=== PATIENT | female | born 1995 | race Hispanic/Latino ===

== ENCOUNTER 2018-02-02 11:55 | Observation (INO) | payer MEDICAID, OTHER ==
[~2018-02-02] VITALS: Ht 157.5 cm; Wt 73.5 kg
[2018-02-02 14:47] VITALS: BP 108/58
== END 2018-02-02 15:04 | disposition home or self-care (01) ==
LOC: LDH 11:55
PROVIDERS: ADMIT Obstetrics & Gynecology; ATTEND Obstetrics & Gynecology
DX: O36.8130 Decreased fetal movements, third trimester, not applicable or unspecified (principal); O62.9 Abnormality of forces of labor, unspecified; Z3A.37 37 weeks gestation of pregnancy
CPT/HCPCS: 59025; 76819; G0378

== ENCOUNTER 2019-06-08 19:35 | Inpatient (IN) | payer MEDICAID, OTHER ==
[~2019-06-08] VITALS: Ht 154.9 cm; Wt 65.8 kg
[2019-06-08 20:00] LABS: APPEARANCE,URINE Cloudy (CLEAR); BILIRUBIN,URINE Small (NEGATIVE); COLOR,URINE Dark Yellow (YELLOW); GLUCOSE, URINE (UA) Negative (NEGATIVE); KETONES,URINE Negative (NEGATIVE); LEUKOCYTE ESTERASE ,URINE Large (NEGATIVE); NITRATE,URINE Negative (NEGATIVE); OCCULT BLOOD,URINE Small (NEGATIVE); PROTEIN,URINE Trace mg/dL (NEGATIVE); UROBILINOGEN,URINE >=8.0 mg/dL (0.2-1.0)
[2019-06-08 20:08] LABS: HEMATOCRIT 38.1 % (36-48); MEAN CORPUSCULAR HEMOGLOBIN 26.9 pg (27.0-33.0); MEAN CORPUSCULAR HGB CONC 33.5 g/dL (32.0-36.0); MEAN CORPUSCULAR VOLUME 80.1 fL (79-99); PLATELET COUNT (AUTO) 166 K/uL (130-400); RED BLOOD CELL COUNT(AUTO) 4.76 MIL/uL (4.00-5.50); RED CELL DISTRIBUTION WIDTH 15.3 % (11.0-15.5); WHITE BLOOD COUNT (AUTO) 9.3 K/uL (4.8-10.8)
[2019-06-08 20:09] LABS: BASOPHILS % (AUTO) 0.1 % (0.0-5.0); EOSINOPHILS % (AUTO) 0.1 % (0.0-8.0); LYMPHOCYTES % (AUTO) 6.3 % (21.0-51.0); MONOCYTES % (AUTO) 10.5 % (3.0-13.0)
[2019-06-08 20:10] LABS: HCG,QUAL RESULT NEGATIVE (NEGATIVE)
[2019-06-08 20:13] LABS: BACTERIA,URINE Few /HPF (None Seen); SQUAMOUS EPITHELIAL CELL,UR Moderate /HPF (0-2); WBC,URINE 26-50 /HPF (0-1)
[2019-06-08 20:15] LABS: TRICHOMONAS,URINE Few /LPF (None Seen)
[2019-06-08 20:16] LABS: RAPID GROUP A STREP NEGATIVE (NEGATIVE)
[2019-06-08 20:17] LABS: CREATININE 0.8 mg/dL (0.5-1.5); POTASSIUM 3.5 mmol/L (3.5-5.1)
[2019-06-08 20:22] LABS: ALBUMIN 3.7 g/dL (3.5-5.0); BILIRUBIN,TOTAL 0.8 mg/dL (0.2-1.0); TOTAL PROTEIN, SERUM 7.9 g/dL (6.0-8.3)
[2019-06-08] MEDS ORDERED: ACETAMINOPHEN 325 MG TAB ONE (20:25)
[2019-06-08] MEDS ORDERED: ONDANSETRON HCL 4 MG/2 ML VIAL ONE (20:25)
[2019-06-08] MEDS ORDERED: CEFTRIAXONE SODIUM 1 GM ONE (20:25)
[2019-06-08] MEDS ORDERED: SODIUM CHLORIDE 0.9% 1000ML 2,000 ML IV ONE (20:26)
[2019-06-08 21:42] LABS: INR 1.02 (0.85-1.15); PARTIAL THROMBOPLASTIN TIME 27.9 SEC (26.3-35.5); PROTHROMBIN TIME 10.7 SEC (9.6-11.6)
[2019-06-08] MEDS ORDERED: IBUPROFEN 200 MG TAB ONE (23:23)
[2019-06-09] MEDS ORDERED: CEFTRIAXONE SODIUM 1 GM IVP SCH (01:45)
[2019-06-09] MEDS ORDERED: ACETAMINOPHEN ELIXIR 160 MG/5ML UDCUP PO PRN (02:00)
[2019-06-09] MEDS ORDERED: SODIUM CHLORIDE 0.9% 1000ML 1,000 ML IV ONE (02:12)
[2019-06-09 03:10] VITALS: BP 112/50
[2019-06-09] MEDS: SODIUM CHLORIDE 0.9% 1000ML 1,000 ML IV SCH ×3 (03:30→18:25)
[2019-06-09 08:00] VITALS: BP 92/55
[2019-06-09] MEDS ORDERED: METHYLPREDNISOLONE SOD SUCC 125MG/2ML VIAL IVP SCH (08:15)
[2019-06-09] MEDS: ZOSYN 3.375GM+NS 50ML 50 ML IV SCH ×3 (08:53→23:56)
[2019-06-09] MEDS: FAMOTIDINE/PF 20 MG/2 ML VIAL IV SCH ×2 (08:53→19:41)
[2019-06-09] MEDS ORDERED: IOHEXOL-350 50ML VIAL IV ONE (08:59)
[2019-06-09 12:00] VITALS: BP 86/42
[2019-06-09] MEDS ORDERED: GLIM4TAB3 PO (12:33)
[2019-06-09] MEDS ORDERED: PANT40TA25 PO (12:33)
[2019-06-09] MEDS ORDERED: METF-806 PO (12:33)
[2019-06-09] MEDS ORDERED: METO25TA6 PO (12:33)
[2019-06-09] MEDS ORDERED: LISI2.5T2 PO (12:33)
[2019-06-09] MEDS ORDERED: ATOR40TA69 PO (12:33)
[2019-06-09] MEDS: METHYLPREDNISOLONE SOD SUCC 125MG/2ML VIAL IVP SCH (13:10)
--- NOTE | 2019-06-09 13:33 | NUR ---
RD NOTIFICATION Primary Diagnosis: Acute Left Peritonsillar Abscess. Hx: Sore throat, Fever. BMI is 27.7; classified as overweight. Current diet: NPO. LBM: 06/08. Skin: no edema, skin intact. Meds: Pepcid, Soul-medrol, Piperacillin. Labs: neg. for Strep Rapid, RG 137, AST 122, ALT 109. Pt has not eaten well for the past week as per pt. She is having difficulty swallowing for the past week. Pt states she has been vomiting with everything she eats. For the past week she has only been eating ice cream and jello, and still vomiting. Pt is pending procedure results and pending consult as per nurse. Nurse advised to remain NPO until results come back. RD recommends to continue NPO, advance diet as tolerated when medically feasible. RD recommends to consider alternate means of nutrition if pt continues without eating X5 days. RD will continue to monitor weight changes and follow up as needed. Please notify RD if any other nutritional concerns arise. Thank you. Beatriz Valle, Dietitian Trainee Addendum: 06/09/19 at [address] RD Amended: Links added.
--- NOTE | 2019-06-09 15:40 | NUR ---
DCP CM met with pt discussed dc plans. Pt is independent prior to admission, lives at home alone, mother lives close by. Denies any equipments/services. Pt feels safe to go back home, still drives, mother able to assist with transportation and needs as necessary. DC plan to home once stable. CM to cont to follow up. Addendum: 06/09/19 at 1541 by MALIHA GROVE LVN CM Amended: Links added.
[2019-06-09 16:00] VITALS: BP 91/54
[2019-06-09 20:00] VITALS: BP 109/67
[2019-06-10] VITALS (7 sets, daily range): BP systolic 90–108; BP diastolic 58–65
[2019-06-10] MEDS: SODIUM CHLORIDE 0.9% 1000ML 1,000 ML IV SCH ×3 (02:59→23:03)
[2019-06-10 05:27] LABS: MEAN CORPUSCULAR HEMOGLOBIN 27.2 pg (27.0-33.0); MEAN CORPUSCULAR HGB CONC 34.1 g/dL (32.0-36.0); MEAN CORPUSCULAR VOLUME 79.9 fL (79-99); PLATELET COUNT (AUTO) 222 K/uL (130-400); RED BLOOD CELL COUNT(AUTO) 4.13 MIL/uL (4.00-5.50); RED CELL DISTRIBUTION WIDTH 15.1 % (11.0-15.5); WHITE BLOOD COUNT (AUTO) 10.2 K/uL (4.8-10.8)
[2019-06-10 05:34] LABS: CREATININE 0.7 mg/dL (0.5-1.5); POTASSIUM 3.9 mmol/L (3.5-5.1)
[2019-06-10] MEDS: ZOSYN 3.375GM+NS 50ML 50 ML IV SCH ×3 (08:30→23:13)
[2019-06-10] MEDS: FAMOTIDINE/PF 20 MG/2 ML VIAL IV SCH ×2 (08:30→19:21)
[2019-06-10] MEDS: ENOXAPARIN SODIUM 30 MG/0.3 ML SQ SCH (08:33)
[2019-06-10] MEDS: METHYLPREDNISOLONE SOD SUCC 125MG/2ML VIAL IVP SCH (13:00)
[2019-06-11 03:33] VITALS: BP 102/58
[2019-06-11 05:37] LABS: HEMATOCRIT 31.1 % (36-48); MEAN CORPUSCULAR HEMOGLOBIN 27.1 pg (27.0-33.0); MEAN CORPUSCULAR HGB CONC 33.4 g/dL (32.0-36.0); MEAN CORPUSCULAR VOLUME 81.1 fL (79-99); PLATELET COUNT (AUTO) 223 K/uL (130-400); RED BLOOD CELL COUNT(AUTO) 3.83 MIL/uL (4.00-5.50); WHITE BLOOD COUNT (AUTO) 7.1 K/uL (4.8-10.8)
[2019-06-11 05:44] LABS: CREATININE 0.7 mg/dL (0.5-1.5); POTASSIUM 3.6 mmol/L (3.5-5.1)
[2019-06-11 08:00] VITALS: BP 91/53
[2019-06-11] MEDS ORDERED: ACETAMINOPHEN 325 MG TAB PO PRN (08:15)
[2019-06-11] MEDS: FAMOTIDINE/PF 20 MG/2 ML VIAL IV SCH (08:20)
[2019-06-11] MEDS: ZOSYN 3.375GM+NS 50ML 50 ML IV SCH (08:20)
[2019-06-11] MEDS: ENOXAPARIN SODIUM 30 MG/0.3 ML SQ SCH (08:27)
[2019-06-11] MEDS ORDERED: AMOX-426 PO (09:53)
[2019-06-11 12:11] VITALS: BP 91/56
[2019-06-11] MEDS: SODIUM CHLORIDE 0.9% 1000ML 1,000 ML IV SCH (12:23)
[2019-06-11] MEDS: METHYLPREDNISOLONE SOD SUCC 125MG/2ML VIAL IVP SCH (13:00)
== END 2019-06-11 14:05 | disposition home or self-care (01) | DRG 134 ==
LOC: EDH 19:35 → OBSVTOIN 19:36 → EDHIP 19:36 → 3DH 06-09 03:29
PROVIDERS: ADMIT Internal Medicine; ATTEND Internal Medicine
PROC: 0C9PXZZ Drainage of Tonsils, External Approach (ICD-10-PCS; principal; 2019-06-09)
DX: J36 Peritonsillar abscess (principal)
CPT/HCPCS: 36415; 70491; 71045; 80048; 80053; 81001; 81025; 83605; 85025; 85027; 85610; 85730; 86308; 87040; 87070; 87076; 87088; 87804; 87880; 93005; G0378; J0696; J1650; J2405; J2543; J2930; J3490; J7030; Q9967

== ENCOUNTER 2019-07-06 09:50 | Emergency (ER) | payer OTHER ==
[~2019-07-06 09:50] MED LIST: AMOX-426 PO
[2019-07-06] MEDS ORDERED: ONDANSETRON HCL 4 MG/2 ML VIAL ONE (10:34)
[2019-07-06] MEDS ORDERED: SODIUM CHLORIDE 0.9% 1000ML 1,000 ML IV ONE (10:34)
[2019-07-06 10:35] LABS: APPEARANCE,URINE Cloudy (CLEAR); BILIRUBIN,URINE Negative (NEGATIVE); COLOR,URINE Yellow (YELLOW); GLUCOSE, URINE (UA) Negative (NEGATIVE); KETONES,URINE Negative (NEGATIVE); LEUKOCYTE ESTERASE ,URINE Large (NEGATIVE); NITRATE,URINE Negative (NEGATIVE); OCCULT BLOOD,URINE Negative (NEGATIVE); PROTEIN,URINE Negative (NEGATIVE)
[2019-07-06 10:36] LABS: BASOPHILS % (AUTO) 0.2 % (0.0-5.0); EOSINOPHILS % (AUTO) 2.6 % (0.0-8.0); HEMATOCRIT 32.8 % (36-48); LYMPHOCYTES % (AUTO) 17.7 % (21.0-51.0); MEAN CORPUSCULAR HEMOGLOBIN 27.6 pg (27.0-33.0); MEAN CORPUSCULAR HGB CONC 34.3 g/dL (32.0-36.0); MEAN CORPUSCULAR VOLUME 80.5 fL (79-99); MONOCYTES % (AUTO) 6.6 % (3.0-13.0); NEUTROPHILS % (AUTO) 72.9 % (40.0-77.0); PLATELET COUNT (AUTO) 237 K/uL (130-400); RED BLOOD CELL COUNT(AUTO) 4.07 MIL/uL (4.00-5.50); RED CELL DISTRIBUTION WIDTH 15.8 % (11.0-15.5); WHITE BLOOD COUNT (AUTO) 6.9 K/uL (4.8-10.8)
[2019-07-06 10:43] LABS: CREATININE 0.6 mg/dL (0.5-1.5); POTASSIUM 3.6 mmol/L (3.5-5.1)
[2019-07-06 10:54] LABS: ALBUMIN 3.5 g/dL (3.5-5.0); BACTERIA,URINE Few /HPF (None Seen); BILIRUBIN,TOTAL 0.6 mg/dL (0.2-1.0); RBC,URINE 0-1 /HPF (0-1); TOTAL PROTEIN, SERUM 7.2 g/dL (6.0-8.3); WBC,URINE 51-100 /HPF (0-1)
[2019-07-06 10:55] LABS: MUCUS,URINE Moderate LPF (None Seen); SQUAMOUS EPITHELIAL CELL,UR Few /HPF (0-2); TRICHOMONAS,URINE Few /LPF (None Seen)
[2019-07-06] MEDS ORDERED: CEFTRIAXONE SODIUM 1 GM ONE (11:09)
== END 2019-07-06 13:05 | disposition home or self-care (01) ==
LOC: EDH 09:50
DX: O23.41 Unspecified infection of urinary tract in pregnancy, first trimester (principal); O98.811 Other maternal infectious and parasitic diseases complicating pregnancy, first trimester; A59.9 Trichomoniasis, unspecified; O21.8 Other vomiting complicating pregnancy; Z3A.01 Less than 8 weeks gestation of pregnancy
CPT/HCPCS: 36415; 76817; 80053; 81001; 83690; 84702; 85025; 86900; 86901; 96361; 96374; 96375; 99285; J0696; J2405; J7030

== ENCOUNTER 2020-08-06 11:46 | Emergency (ER) | payer OTHER ==
[2020-08-06 12:32] LABS: APPEARANCE,URINE Cloudy (CLEAR); BILIRUBIN,URINE Negative (NEGATIVE); COLOR,URINE Yellow (YELLOW); GLUCOSE, URINE (UA) Negative (NEGATIVE); KETONES,URINE Negative (NEGATIVE); LEUKOCYTE ESTERASE ,URINE Moderate (NEGATIVE); NITRATE,URINE Negative (NEGATIVE); OCCULT BLOOD,URINE Negative (NEGATIVE); PH,URINE 6.5 (5.0-8.0); PROTEIN,URINE Negative (NEGATIVE)
[2020-08-06 12:33] LABS: HCG,QUAL RESULT NEGATIVE (NEGATIVE)
[2020-08-06 12:42] LABS: BACTERIA,URINE Rare /HPF (None Seen); RBC,URINE 0-1 /HPF (0-1); SQUAMOUS EPITHELIAL CELL,UR Few /HPF (0-2)
[2020-08-06] MEDS ORDERED: CEFTRIAXONE SODIUM 1 GM ONE ×2 (14:46→14:56)
[2020-08-06] MEDS ORDERED: LIDOCAINE HCL-MPF 1% 2ML VIAL ONE (14:56)
[2020-08-06] MEDS ORDERED: AZITHROMYCIN 250 MG TABLET PO ONE (15:04)
[2020-08-06] MEDS ORDERED: METRONIDAZOLE 500 MG TABLET ONE (15:07)
== END 2020-08-06 15:41 | disposition home or self-care (01) ==
LOC: EDH 11:46
DX: N39.0 Urinary tract infection, site not specified (principal); A59.01 Trichomonal vulvovaginitis
CPT/HCPCS: 36415; 76856; 81001; 81025; 84702; 87088; 87210; 87486; 87797; 96372; 99284; J0696 ×2; J3490

== ENCOUNTER 2021-02-02 14:40 | Emergency (ER) | payer SELFPAY ==
[2021-02-02] MEDS ORDERED: KETOROLAC 30MG VIAL (30MG/ML) ONE (15:23)
[2021-02-02] MEDS ORDERED: ONDANSETRON 4MG INJ ONE (15:23)
[2021-02-02 15:24] LABS: BASOPHILS % (AUTO) 0.3 % (0.0-5.0); EOSINOPHILS % (AUTO) 2.4 % (0.0-8.0); HEMATOCRIT 39.5 % (36-48); LYMPHOCYTES % (AUTO) 15.6 % (21.0-51.0); MEAN CORPUSCULAR HEMOGLOBIN 28.5 pg (27.0-33.0); MEAN CORPUSCULAR HGB CONC 33.9 g/dL (32.0-36.0); MONOCYTES % (AUTO) 6.4 % (3.0-13.0); PLATELET COUNT (AUTO) 248 K/uL (130-400); RED CELL DISTRIBUTION WIDTH 13.2 % (11.0-15.5)
[2021-02-02 15:37] LABS: CREATININE 0.7 mg/dL (0.5-1.5); POTASSIUM 4.2 mmol/L (3.5-5.1)
[2021-02-02 15:41] LABS: ALBUMIN 3.9 g/dL (3.5-5.0); BILIRUBIN,TOTAL 0.5 mg/dL (0.2-1.0); TOTAL PROTEIN, SERUM 7.5 g/dL (6.0-8.3)
[2021-02-02 16:12] LABS: APPEARANCE,URINE Cloudy (CLEAR); BILIRUBIN,URINE Negative (NEGATIVE); COLOR,URINE Yellow (YELLOW); GLUCOSE, URINE (UA) Negative (NEGATIVE); KETONES,URINE Negative (NEGATIVE); LEUKOCYTE ESTERASE ,URINE Moderate (NEGATIVE); NITRATE,URINE Negative (NEGATIVE); OCCULT BLOOD,URINE Negative (NEGATIVE); PROTEIN,URINE Negative (NEGATIVE)
[2021-02-02 16:13] LABS: HCG,QUAL RESULT NEGATIVE (NEGATIVE)
[2021-02-02 16:28] LABS: BACTERIA,URINE Few /HPF (None Seen); MUCUS,URINE Moderate LPF (None Seen); SQUAMOUS EPITHELIAL CELL,UR Moderate /HPF (0-2)
== END 2021-02-02 17:18 | disposition home or self-care (01) ==
LOC: EDH 14:40
DX: R10.9 Unspecified abdominal pain (principal)
CPT/HCPCS: 36415; 74176; 80053; 81001; 81025; 83690; 85025; 87088; 96361; 96374; 96375; 99284; J1885; J2405

== ENCOUNTER 2021-07-05 23:13 | Emergency (ER) | payer SELFPAY ==
[~2021-07-05] VITALS: Ht 154.9 cm; Wt 77.1 kg
[2021-07-06 00:02] LABS: BASOPHILS % (AUTO) 0.4 % (0.0-5.0); EOSINOPHILS % (AUTO) 3.1 % (0.0-8.0); HEMATOCRIT 40.2 % (36-48); LYMPHOCYTES % (AUTO) 18.1 % (21.0-51.0); MEAN CORPUSCULAR HEMOGLOBIN 28.9 pg (27.0-33.0); MEAN CORPUSCULAR HGB CONC 33.1 g/dL (32.0-36.0); MEAN CORPUSCULAR VOLUME 87.2 fL (79-99); MONOCYTES % (AUTO) 8.2 % (3.0-13.0); NEUTROPHILS % (AUTO) 69.8 % (40.0-77.0); PLATELET COUNT (AUTO) 263 K/uL (130-400); RED BLOOD CELL COUNT(AUTO) 4.61 MIL/uL (4.00-5.50); RED CELL DISTRIBUTION WIDTH 13.3 % (11.0-15.5); WHITE BLOOD COUNT (AUTO) 9.8 K/uL (4.8-10.8)
[2021-07-06 00:05] LABS: CREATININE 0.7 mg/dL (0.5-1.5)
[2021-07-06 00:07] LABS: BILIRUBIN,URINE Negative (NEGATIVE); COLOR,URINE Yellow (YELLOW); GLUCOSE, URINE (UA) Negative (NEGATIVE); KETONES,URINE Negative (NEGATIVE); LEUKOCYTE ESTERASE ,URINE Small (NEGATIVE); NITRATE,URINE Negative (NEGATIVE); OCCULT BLOOD,URINE Negative (NEGATIVE); PROTEIN,URINE Negative (NEGATIVE)
[2021-07-06 00:08] LABS: APPEARANCE,URINE HAZY (CLEAR)
[2021-07-06 00:10] LABS: ALBUMIN 3.8 g/dL (3.5-5.0); BILIRUBIN,TOTAL 0.3 mg/dL (0.2-1.0); TOTAL PROTEIN, SERUM 7.4 g/dL (6.0-8.3)
[2021-07-06 00:16] LABS: BACTERIA,URINE Few /HPF (None Seen); RBC,URINE 0-1 /HPF (0-1)
[2021-07-06 00:17] LABS: AMORPHOUS SEDIMENT,UR Few /LPF (None Seen); MUCUS,URINE Few LPF (None Seen)
[2021-07-06] MEDS ORDERED: CEFTRIAXONE 1G VIAL IVP ONE (00:30)
[2021-07-06] MEDS ORDERED: CEFTRIAXONE 1G VIAL ONE (00:47)
[2021-07-06] MEDS ORDERED: CEPH500B PO (01:51)
[2021-07-06 02:04] VITALS: BP 116/70
== END 2021-07-06 02:06 | disposition home or self-care (01) ==
LOC: EDH 23:13
DX: N39.0 Urinary tract infection, site not specified (principal); Z79.899 Other long term (current) drug therapy
CPT/HCPCS: 36415; 74176; 80053; 81001; 84703; 85025; 96374; 99284; J0696

== ENCOUNTER 2022-01-17 16:34 | Emergency (ER) | payer MEDICAID, OTHER ==
[~2022-01-17] VITALS: Ht 154.9 cm; Wt 75.7 kg
[~2022-01-17 16:34] MED LIST changes: +CEPH500B PO
[2022-01-17 16:57] LABS: BASOPHILS % (AUTO) 0.3 % (0.0-5.0); EOSINOPHILS % (AUTO) 0.8 % (0.0-8.0); HEMATOCRIT 40.5 % (36-48); LYMPHOCYTES % (AUTO) 13.9 % (21.0-51.0); MEAN CORPUSCULAR HEMOGLOBIN 27.5 pg (27.0-33.0); MEAN CORPUSCULAR HGB CONC 32.8 g/dL (32.0-36.0); MEAN CORPUSCULAR VOLUME 83.7 fL (79-99); MONOCYTES % (AUTO) 5.7 % (3.0-13.0); PLATELET COUNT (AUTO) 291 K/uL (130-400); RED BLOOD CELL COUNT(AUTO) 4.84 MIL/uL (4.00-5.50); RED CELL DISTRIBUTION WIDTH 13.5 % (11.0-15.5); WHITE BLOOD COUNT (AUTO) 11.7 K/uL (4.8-10.8)
[2022-01-17 16:58] LABS: APPEARANCE,URINE Cloudy (CLEAR); BILIRUBIN,URINE Negative (NEGATIVE); COLOR,URINE Dark Yellow (YELLOW); GLUCOSE, URINE (UA) Negative (NEGATIVE); KETONES,URINE >=80 mg/dL (NEGATIVE); LEUKOCYTE ESTERASE ,URINE Moderate (NEGATIVE); NITRATE,URINE Negative (NEGATIVE); OCCULT BLOOD,URINE Negative (NEGATIVE); PH,URINE 5.5 (5.0-8.0); PROTEIN,URINE Trace mg/dL (NEGATIVE)
[2022-01-17] MEDS ORDERED: 0.9% NACL 500ML IV.SOLN 500 ML IV ONE ×2 (17:00→17:14)
[2022-01-17] MEDS ORDERED: KETOROLAC 15MG/ML VIAL (15MG/ML) IV ONE (17:00)
[2022-01-17 17:04] LABS: HCG,QUAL RESULT POSITIVE (NEGATIVE)
[2022-01-17 17:09] LABS: CREATININE 0.6 mg/dL (0.5-1.5); POTASSIUM 3.7 mmol/L (3.5-5.1)
[2022-01-17 17:10] LABS: BACTERIA,URINE Moderate /HPF (None Seen); MUCUS,URINE Moderate LPF (None Seen); SQUAMOUS EPITHELIAL CELL,UR Moderate /HPF (0-2)
[2022-01-17 17:14] LABS: ALBUMIN 3.9 g/dL (3.5-5.0); BILIRUBIN,TOTAL 0.5 mg/dL (0.2-1.0); TOTAL PROTEIN, SERUM 7.6 g/dL (6.0-8.3)
[2022-01-17 17:17] VITALS: BP 102/64
[2022-01-17] MEDS ORDERED: CEPH500B PO (17:55)
== END 2022-01-17 18:06 | disposition home or self-care (01) ==
LOC: EEVIPCON 16:34 → EDH 16:34
DX: O23.41 Unspecified infection of urinary tract in pregnancy, first trimester (principal); N39.0 Urinary tract infection, site not specified; Z3A.01 Less than 8 weeks gestation of pregnancy
CPT/HCPCS: 36415; 76801; 80053; 81001; 81025; 84702; 85025; 87088; 96360; 99284; J7040